=== PATIENT | female | born 1990 | race Caucasian/White ===

== ENCOUNTER → 2019-11-23 | Outpatient (CLI) | payer BC ==
[2019-11-24 09:24] LABS: HIV 1 AB Non-Reactive (Non-Reactive); HIV 2 AB Non-Reactive (Non-Reactive); HIV AB P24 Non-Reactive (Non-Reactive); HIV P24 AG Non-Reactive (Non-Reactive)
== END | disposition home or self-care (01) ==
LOC: LABWHC1 15:12
PROVIDERS: ATTEND Obstetrics & Gynecology
DX: Z36.9 Encounter for antenatal screening, unspecified (principal)
CPT/HCPCS: 36415; 82950; 87390

== ENCOUNTER 2020-02-06 17:36 | Inpatient (IN) | payer BC ==
[2020-02-06] MEDS ORDERED: CARBOPROST TROMETHAMINE 250 MCG/ML 1 ML AMP IM PRN (19:19)
[2020-02-06] MEDS ORDERED: METHYLERGONOVINE 0.2 MG/ML 1 ML AMP IM PRN (19:19)
[2020-02-06] MEDS ORDERED: OXYTOCIN 10 UNIT/ML 1 ML VIAL IM PRN (19:19)
[2020-02-06] MEDS ORDERED: LIDOCAINE 0.5% (PF) 5 MG/ML (50 ML SDV) SQ PRN (19:19)
[2020-02-06] MEDS ORDERED: TERBUTALINE 1 MG/ML VIAL SQ PRN (19:19)
[2020-02-06] MEDS ORDERED: LACTATED RINGERS 1,000 ML IV SCH (19:30)
[2020-02-06 20:12] LABS: Basophils % (A) 0 %; Eosinophils # (A) 0.1 k/uL (0-0.7); Eosinophils % (A) 1 %; HCT 39.3 % (34.0-46.0); HGB 12.6 gm/dL (11.4-16.0); Lymphocytes # (A) 1.3 k/uL (1.0-4.8); Lymphocytes % (A) 7 %; MCH 30.2 pg (25.0-35.0); MCHC 32.2 g/dL (31.0-37.0); MCV 93.9 fL (80.0-100.0); Mean Platelet Volume 8.9; Monocytes # (A) 0.4 k/uL (0-1.0); Monocytes % (A) 2 %; Neutrophils # (A) 16.8 k/uL (1.3-7.7); Neutrophils % (A) 89 %; Platelet Count 192 k/uL (150-450); RBC 4.18 m/uL (3.80-5.40); RDW 12.8 % (11.5-15.5); WBC 18.8 k/uL (3.8-10.6)
--- NOTE | 2020-02-06 21:44 | P.HPOB ---
History of Present Illness H&P Date: 02/06/20 Chief Complaint: Strong regular uterine contractions This is a 29-year-old white female 1 para 0 EDC 02/01/2020 at 40-5/7 weeks' gestation. Patient presented from home with strong regular uterine contractions which started this morning. She denies vaginal bleeding or fluid leakage. Fetus is been active throughout the . Past medical history is unremarkable. Past surgical history wisdom teeth extracted in the past. ALLERGIES none known. Current medications vitamins daily. Family history unremarkable. 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 She is a former tobacco smoker. She is , denies alcohol or drug use. Obstetric history is significant for blood type A+, rubella status immune. Group B strep cultures negative. Gonorrhea and chlamydia cultures negative. One-hour Glucola 131. HIV testing, hepatitis B surface antigen urine culture all negative. VDRL testing nonreactive. On exam patient is 5 foot 2 inches, 142 pounds, blood pressure 114/56. Vital signs are stable and she is afebrile. General physical exam is within normal limits. Cervix on admission was 3 cm dilated, patient is currently anterior lip, intact, 0 station, vertex, soft. heart rate is consistent with reactive NST. Impression: 40-5/7 weeks intrauterine , active spontaneous labor. All signs at this time reassuring. Plan: Patient is declining artificial amniorrhexis. She is declining oxytocin augmentation. She is declining options for analgesia. I have counseled her that she may begin the second stage of labor when she feels perineal pressure. Continue close maternal and surveillance. Anticipate normal spontaneous vaginal delivery. Review of Systems Constitutional: Reports as per HPI Past Medical History History of Any Multi-Drug Resistant Organisms: None Reported Smoking Status: Never smoker Medications and Allergies Home Medications Medication Instructions Recorded Confirmed Type Pnv No.95/Ferrous Fum/Folic AC 1 each PO DAILY 02/06/20 02/06/20 History [ Multivitamin Tablet] Allergies Allergy/AdvReac Type Severity Reaction Status Date / Time No Known Allergies Allergy Verified 02/06/20 18:00 Exam Vital Signs Temp Pulse Resp BP Pulse Ox 02/06/20 18:30 97.7 F 101 H 18 114/56 99 Intake and Output 02/06/20 02/06/20 02/06/20 06:59 14:59 22:59 Other: Weight 64.41 kg See dictation under HPI please Results Result Diagrams: 02/06/20 19:55 Abnormal Lab Results - Last 24 Hours (Table) 02/06/20 Range/Units 19:55 WBC 18.8 H (3.8-10.6) k/uL Neutrophils # 16.8 H (1.3-7.7) k/uL Assessment and Plan Assessment: 40-5/7 weeks intrauterine . Active spontaneous labor. Plan: Again I will attempt to on her patient's request. Continue close maternal and surveillance. Anticipate normal spontaneous vaginal delivery. Time with Patient: Less than 30
--- NOTE | 2020-02-06 23:01 | P.PROBDLV ---
Vaginal Delivery Note - . Vaginal Delivery Note: This is a 29-year-old white female 1 para 0 EDC 02/01/2020 at 40-5/7 weeks' gestation. Patient presented with strong regular uterine contractions from home. Cervical change was noted in the triage area and patient was admitted. is remarkable for rubella status immune, group B strep cultures negative, blood type A+. Please see dictated history and physical for details. Patient refused IV fluids, but allowed for Hep-Lock to be placed. She declined option for analgesia, and declined oxytocin. She did make regular cervical change, heart was was reassuring throughout first and second stages of labor. She became completely dilated at 2153 hours at which time spontaneous amniorrhexis revealed clear fluid. She began the second stage of labor at that time. Perineal body was prepped and draped in usual sterile fashion. With excellent maternal expulsive efforts ultimately the infant crowned in the occiput anterior position. He restituted accordingly. The right or anterior shoulder was delivered easily from underneath the pubic symphysis at which time the oropharynx, nasopharynx, and external nares were all bulb suctioned on the perineal body. Patient was officially delivered of a liveborn male infant at 2242 hours. The umbilical cord was doubly clamped and ligated, he was handed to waiting nurses for evaluation where scores of 8 and 9 at one and 5 minutes respectively were given. The placenta delivered spontaneously, it was inspected and noted to be intact with trivascular cord at 2242 hours. At this time the perineal body was redraped. Inspection of the cervix, vagina, perineum, periurethral, and perirectal areas revealed a small first-degree perineal laceration. This was injected with 1% lidocaine and repaired with 3-0 Rapide suture for excellent reapproximation. Fundus is firm and in the midline, symmetric and 18 week size upon completion of delivery. Total estimated blood loss 200 mL's. Patient and her family were allowed to begin the bonding experience in the LDR. Her baby weighs 7 lbs. 10 oz. or 3475 g.
[2020-02-06] MEDS ORDERED: LANOLIN CREAM 5 GM TUBE TOPICAL PRN (23:02)
[2020-02-06] MEDS ORDERED: diphenhydrAMINE ELIXIR 25 MG/10 ML CUP PO PRN (23:02)
[2020-02-06] MEDS ORDERED: diphenhydrAMINE 50 MG/ML 1 ML VIAL IVP PRN ×2 (23:02)
[2020-02-06] MEDS ORDERED: diphenhydrAMINE 50 MG CAP PO PRN (23:02)
[2020-02-06] MEDS ORDERED: HYDROCORTISONE 2.5% RECTAL CREAM 30 GM TUBE RECTAL PRN (23:02)
[2020-02-06] MEDS ORDERED: ACETAMINOPHEN TAB 325 MG TAB PO PRN (23:02)
[2020-02-06] MEDS ORDERED: BENZOCAINE/MENTHOL SPRAY 1 GM/SPRAY AEROSOL TOPICAL PRN (23:02)
[2020-02-06] MEDS ORDERED: SIMETHICONE 80 MG CHEWABLE PO PRN (23:02)
[2020-02-06] MEDS ORDERED: IBUPROFEN 600 MG TAB PO PRN (23:02)
[2020-02-06] MEDS ORDERED: ZOLPIDEM 5 MG TAB PO PRN (23:02)
[2020-02-06] MEDS ORDERED: WITCH HAZEL 1 EACH MED..PAD TOPICAL PRN (23:02)
[2020-02-06] MEDS ORDERED: diphenhydrAMINE 25 MG CAP PO PRN (23:02)
[2020-02-06] MEDS ORDERED: OXYTOCIN 20 UNITS/1000 ML NS 1,000 ML IV SCH (23:15)
[2020-02-07 08:00] VITALS: RESP 16
--- NOTE | 2020-02-07 08:53 | P.PNOBGVD ---
Subjective - Subjective Patient reports: Reports appetite normal, Reports voiding normally, Reports pain well controlled, Reports ambulating normally : doing well Objective - Latest Vital Signs Latest vital signs: Vital Signs Temp Pulse Resp BP Pulse Ox 02/07/20 07:59 99.0 F 98 16 101/59 02/07/20 04:00 98 F 97 15 107/70 99 02/07/20 01:04 97.1 F L 74 16 110/51 02/07/20 00:34 97.1 F L 73 16 115/56 02/07/20 00:04 97.8 F 82 16 108/68 98 02/06/20 23:49 97.9 F 94 16 115/70 02/06/20 23:34 97.6 F 108 H 16 122/57 02/06/20 23:19 97.8 F 88 16 111/58 02/06/20 23:04 97.8 F 77 16 114/58 02/06/20 18:30 97.7 F 101 H 18 114/56 99 Intake and Output 02/06/20 02/07/20 02/07/20 22:59 06:59 14:59 Other: # Voids 1 1 Weight 64.41 kg - Exam Extremities: Present: normal Abdomen: Present: normal appearance, soft Uterus: Present: normal, firm (The uterine fundus is, And nontender just below the umbilicus.) - Labs Labs: Abnormal Lab Results - Last 24 Hours (Table) 02/06/20 Range/Units 19:55 WBC 18.8 H (3.8-10.6) k/uL Neutrophils # 16.8 H (1.3-7.7) k/uL Assessment and Plan (1) Normal spontaneous vaginal delivery Current Visit: Yes Status: Acute Code(s): O80 - ENCOUNTER FOR FULL-TERM UNCOMPLICATED DELIVERY SNOMED Code(s): 88818171 Plan: Continue routine care. I would anticipate discharge home tomorrow pending no complications.
[2020-02-07] MEDS: SENNOSIDES-DOCUSATE SODIUM 1 EACH TAB PO SCH (20:21)
--- NOTE | 2020-02-08 08:42 | P.DS ---
Providers Date of admission: 02/06/20 21:39 Expected date of discharge: 02/08/20 Attending physician: Leon Arnold Primary care physician: Stated None - Discharge Diagnosis(es) (1) Normal spontaneous vaginal delivery Current Visit: Yes Status: Acute Hospital Course: The patient is a 29-year-old 1 para 0 admitted at 40-5/7 weeks by good dating parameters. She is admitted in early active labor with all signs reassuring. Her has been uncomplicated and group B strep status is negative. On labor and delivery, she made progress on her own without augmentation or rupture of membranes and ultimately progressed to complete where after she pushed to a normal spontaneous vaginal delivery of a viable 7 lbs. 10 oz. baby boy with Apgars of 8 at 1 minute and 9 at 5 minutes. Her course was unremarkable with vital signs remaining stable and her temperature was afebrile throughout. She was deemed stable for discharge on day #2 and was discharged home to follow-up in the office in 6 weeks' time routinely. Discharge instructions included calling for any significantly increased bleeding or foul-smelling lochia, significantly increased fever abdominal pain, perineal complaints, breast complaints, or anything else that concerned her. She was additionally instructed to have nothing in the vagina for at least 6 weeks time to include intercourse. She understood her instructions and agrees to follow up as noted above. Discharge medications included continued vitamins as she has opted to breast-feed. She was otherwise to use [id number] analgesic pain medications as needed. Maternal blood type is A+ and rubella status is immune. Procedures: #1. Normal spontaneous vaginal delivery #2. Repair of perineal laceration Patient Condition at Discharge: Good Plan - Discharge Summary New Discharge Prescriptions: No Action Pnv No.95/Ferrous Fum/Folic AC [ Multivitamin Tablet] 1 each PO DAILY Discharge Medication List Pnv No.95/Ferrous Fum/Folic AC [ Multivitamin Tablet] 1 each PO DAILY 02/06/20 [History] Follow up Appointment(s)/Referral(s): Leon Arnold MD [STAFF PHYSICIAN] - 6 Weeks Discharge Disposition: HOME SELF-CARE
[2020-02-08 10:26] VITALS: BP 94/56; PULSE 76; TEMP 98.6
[2020-02-08] MEDS: SENNOSIDES-DOCUSATE SODIUM 1 EACH TAB PO SCH (10:28)
== END 2020-02-08 10:28 | disposition home or self-care (01) | DRG 807 ==
LOC: FBPOP 17:36 → 4FBP 21:39
PROVIDERS: ADMIT Obstetrics & Gynecology; ATTEND Obstetrics & Gynecology
PROC: 10E0XZZ Delivery of Products of Conception, External Approach (ICD-10-PCS; principal; 2020-02-06)
PROC: 0HQ9XZZ Repair Perineum Skin, External Approach (ICD-10-PCS; 2020-02-06)
DX: O70.0 First degree perineal laceration during delivery (principal); Z37.0 Single live birth; Z3A.40 40 weeks gestation of pregnancy; Z53.20 Procedure and treatment not carried out because of patient's decision for unspecified reasons; Z79.899 Other long term (current) drug therapy; Z87.891 Personal history of nicotine dependence; Z98.890 Other specified postprocedural states
CPT/HCPCS: 59025; 85025; 86850; 86900; 86901; 87635; 99213

== ENCOUNTER → 2022-08-07 | Outpatient (CLI) | payer BC ==
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
== END | disposition home or self-care (01) ==
LOC: RADUSWWP 15:25
PROVIDERS: ATTEND Obstetrics & Gynecology
DX: O26.851 Spotting complicating pregnancy, first trimester (principal); Z3A.11 11 weeks gestation of pregnancy
CPT/HCPCS: 76801

== ENCOUNTER 2023-07-10 07:48 | Emergency (ER) | payer OTHER, BC ==
[2023-07-10] MEDS ORDERED: DIPH,PERTUS(ACELL)TETVAC-LF 0.5 ML VIAL IM ONE (07:53)
[2023-07-10] MEDS ORDERED: HYDROmorphone 1 MG/ML 1 ML SYRINGE IVP STA ×2 (08:07→08:08)
[2023-07-10] MEDS ORDERED: MIDAZOLAM 1 MG/ML 5 ML VIAL IV STA (08:07)
--- NOTE | 2023-07-10 08:12 | XR ---
EXAMINATION TYPE: XR pelvis AP view DATE OF EXAM: 07/10/2023 CLINICAL HISTORY: pain TECHNIQUE: Single view the pelvis is submitted. FINDINGS: Noted is fracture involving the right superior and inferior pubic rami extending into the r ight ischium. There is fracture of the left os pubis extending into the left inferior pubic ramus. Th ere is left-sided intratrochanteric fracture seen. There may be mild widening of the right SI joint. Comminuted fracture of the femoral diaphysis with complete displacement and overriding of the fractur e fragments is partially imaged. IMPRESSION: 1. Multiple fractures as above
--- NOTE | 2023-07-10 08:14 | XR ---
EXAMINATION TYPE: XR chest 1V DATE OF EXAM: 07/10/2023 COMPARISON: NONE HISTORY: Chest pain TECHNIQUE: Single frontal view of the chest is obtained. FINDINGS: There are fractures of right ribs 4 through 7. There is pleural thickening. No obvious pneumothorax i s seen. Hazy density overlies the right hemithorax. The left lung is clear. There appear to be fractu res of left ribs 6 through 8. IMPRESSION: 1. Bilateral rib fractures noted. No obvious or sizable pneumothorax at this time.
--- NOTE | 2023-07-10 08:16 | XR ---
EXAMINATION TYPE: XR wrist limited LT DATE OF EXAM: 07/10/2023 CLINICAL HISTORY: pain TECHNIQUE: Single view of the left wrist is submitted. COMPARISON: None. FINDINGS: Markedly comminuted distal radial and ulnar fractures with intra-articular extension and si gnificant displacement and angulation. Soft tissue deformity noted. IMPRESSION: As above
[2023-07-10 08:17] LABS: Basophils % (A) 0 %; Eosinophils # (A) 0.1 k/uL (0-0.7); Eosinophils % (A) 0 %; HCT 34.5 % (34.0-46.0); Lymphocytes # (A) 4.9 k/uL (1.0-4.8); Lymphocytes % (A) 28 %; MCH 32.2 pg (25.0-35.0); MCHC 34.6 g/dL (31.0-37.0); Mean Platelet Volume 8.2; Monocytes # (A) 0.3 k/uL (0-1.0); Monocytes % (A) 2 %; Neutrophils # (A) 12.3 k/uL (1.3-7.7); Neutrophils % (A) 70 %; Platelet Count 302 k/uL (150-450); RBC 3.71 m/uL (3.80-5.40); RDW 12.4 % (11.5-15.5); WBC 17.7 k/uL (3.8-10.6)
[2023-07-10] MEDS ORDERED: TRANEXAMIC 1,000 MG/100ML-NACL 1,000 MG in SALINE 1 100ML.BAG IV STA (08:23)
--- NOTE | 2023-07-10 08:23 | XR ---
EXAMINATION TYPE: XR tibia fibula bilateral DATE OF EXAM: 07/10/2023 CLINICAL HISTORY: pain TECHNIQUE: Single views of the right tibia and left tibia are submitted. The entirety of the left tib ia and fibula are not on the [id number]. COMPARISON: None. FINDINGS: Comminuted and displaced fractures of the middle one third of the right tibia and fibula ar e noted with displacement of at least 2.2 cm. There is fracture involving the distal fibula at the la teral malleolus. There is also fracture which appears to be mildly comminuted involving the fibular n estrella. Radiopaque density overlies the os calcis which could reflect foreign body. No definite left-laura ed fracture is seen on this limited view. IMPRESSION: As above
[2023-07-10 08:28] LABS: ALT 262 U/L (4-34); AST 389 U/L (14-36); African American GFR (CKD) >90 (>60 ml/min/1.73 sqM); Albumin 3.5 g/dL (3.5-5.0); Alcohol <10 mg/dL; Alkaline Phosphatase 55 U/L (38-126); Anion Gap 11 mmol/L; Blood Urea Nitrogen 12 mg/dL (7-17); Calcium 7.5 mg/dL (8.4-10.2); Carbon Dioxide 16 mmol/L (22-30); Chloride 110 mmol/L (98-107); Glucose 146 mg/dL (74-99); Non-African American GFR(CKD) >90 (>60 ml/min/1.73 sqM); Potassium 4.4 mmol/L (3.5-5.1); Sodium 137 mmol/L (137-145); Total Bilirubin 0.4 mg/dL (0.2-1.3); Total Protein 6.1 g/dL (6.3-8.2)
[2023-07-10] MEDS ORDERED: fentaNYL (PF). 1,000 MCG in SODIUM CHLORIDE 0.9% 80 ML IV SCH (08:30)
[2023-07-10 08:33] LABS: ABG Base Excess -10.6 mmol/L; ABG HCO3 16 mmol/L (21-25); ABG Oxygen Saturation 99.8 % (94-97); ABG PCO2 35 mmHg (35-45); ABG PH 7.28 (7.35-7.45); ABG PO2 338 mmHg (83-108); ABG TCO2 17 mmol/L (19-24); Allen Test Performed? Yes
[2023-07-10 08:49] VITALS: RESP 20
[2023-07-10 09:35] VITALS: BP 91/60; PULSE 100
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
== END 2023-07-10 08:40 | disposition other institution (70) ==
LOC: EC 07:48
DX: S72.14 Intertrochanteric fracture of femur (principal); S82.251B Displaced comminuted fracture of shaft of right tibia, initial encounter for open fracture type I or II; S82.451B Displaced comminuted fracture of shaft of right fibula, initial encounter for open fracture type I or II; S22.43XA Multiple fractures of ribs, bilateral, initial encounter for closed fracture; S32.591A Other specified fracture of right pubis, initial encounter for closed fracture; S32.592A Other specified fracture of left pubis, initial encounter for closed fracture; S52.252A Displaced comminuted fracture of shaft of ulna, left arm, initial encounter for closed fracture; S52.572A Other intraarticular fracture of lower end of left radius, initial encounter for closed fracture; S27.321A Contusion of lung, unilateral, initial encounter; R00.0 Tachycardia, unspecified; Z23 Encounter for immunization; V89.2XXA Person injured in unspecified motor-vehicle accident, traffic, initial encounter; Y92.410 Unspecified street and highway as the place of occurrence of the external cause
CPT/HCPCS: 31500; 29125; 29505; 99291; 36430; 36415; 36600; 94002; 93005; 86900; 86901; 80053; 82805; 85025; 86850; 86920; 80320; 87070; 87205; 73590; 72170; 73100; 71045; 90715; 96365; 96375 ×2; 90471; P9016; P9059; J0690; J2250; J1170; J3010